=== PATIENT | female | born 1950 | race Caucasian/White ===

== ENCOUNTER 2017-11-07 13:09 | Outpatient (CLI) | payer MEDICARE, BC ==
--- NOTE | 2017-11-07 13:54 | RAD ---
RIGHT WRIST FOUR VIEWS: HISTORY: Right wrist pain. Tendinitis. FINDINGS: The carpals are normally aligned. Mild degenerative change is seen at the first carpometacarpal join t and at the scapular-trapezium joint. No fracture. No lytic or destructive process. No significan t erosive change. IMPRESSION: Mild degenerative change noted. No acute process identified. POS: [facility]
== END 2017-11-07 13:10 | disposition home or self-care (01) ==
LOC: MADRAD 13:09
PROVIDERS: ATTEND Obstetrics & Gynecology
DX: M77.8 Other enthesopathies, not elsewhere classified (principal); M18.11 Unilateral primary osteoarthritis of first carpometacarpal joint, right hand

== ENCOUNTER 2022-07-28 14:07 | Outpatient (CLI) | payer MEDICARE | END 2022-07-28 14:08 | disposition home or self-care (01) | LOC: MADRAD 14:07 | PROVIDERS: ATTEND Nurse Practitioner Family | DX: R05.9 Cough, unspecified (principal); R12 Heartburn; R79.89 Other specified abnormal findings of blood chemistry | CPT/HCPCS: 71046 ==